=== PATIENT | male | born 1995 | race Caucasian/White ===

== ENCOUNTER → 2017-07-14 | Outpatient (CLI) | payer OTHER ==
[~2017-07-14] MED LIST: METHACHOLINE KIT (J7674) INH ONE
--- NOTE | 2017-07-14 16:08 | PFTRPT ---
Tech: Randy CHAUDHRY RRT Age: 21 Sex: Male Race: Height: 73.00 Inches Weight: 230.00 Lbs BSA: 2.28 Diagnosis: R06.02 METHACHOLINE CHALLENGE REPORT: ORDERING PROVIDER: Derick Sneed M.D. DATE OF SERVICE: 07/14/17 INTERPRETATION: The study was of excellent technical quality. Under protocol, methacholine was administered. Even after a maximal dose of 25 mg (188.875 CDUs) of methacholine , a deflection of 17% in the FEV1 was noted. This does not meet criteria for a positive study. IMPRESSION: Negative methacholine challenge study by formal criteria. Please correlate clinically with symptoms. MTDD
== END ==
LOC: M CARPUL 14:30
PROVIDERS: ATTEND Internal Medicine Pulmonary Disease
DX: R06.02 Shortness of breath (principal)